=== PATIENT | female | born 1960 | race Two or more races ===

== ENCOUNTER 2016-09-20 03:18 | Inpatient (IN) | payer OTHER ==
[2016-09-20] MEDS ORDERED: IPRATROPIUM/ALBUTEROL 3 ML DEYVIAL ONE (03:24)
--- NOTE | 2016-09-20 03:25 | EDPHY ---
H & P HPI/ROS: HPI CHIEF COMPLAINT: Shortness of breath, wheezing, cough, chills, fever HISTORY OF PRESENT ILLNESS: this patient is a very pleasant 55-year-old female she does have significant past medical history for asthma she has never been intubated for asthma, she presents emergency room with 1 month of worsening cough. She states over 5 days ago she developed a fever, and for the past 2 days she has had worsening asthma or wheezing and shortness of breath. She tells me the last 2 days she has been having to use her nebulizer very frequently. She is feeling more more short of breath. She has no history of coronary artery disease or pulmonary embolism. She does tell me she has a known left bundle-branch block. She presents emergency room as she was using her nebulizer today but was unable to improve her respiratory status she felt more shortness of breath and further wheezing. She has had a cough nonproductive. She does admit to chills and fever. It is noted she is 37.8 degrees here. Past Medical History: Arthritis, asthma, left bundle branch block, chronic back pain Past Surgical History: Multiple orthopedic surgeries including knees, rotator cuff Social History: Denies use of drugs alcohol tobacco products Family History: Noncontributory ROS REVIEW OF SYSTEMS: A comprehensive 10 point review of systems is otherwise negative aside from elements mentioned in the history of present illness. Exam Constitutional appears well, triage nursing summary reviewed, vital signs reviewed, awake/alert. Eyes normal conjunctivae and sclera, EOMI, PERRLA. HENT normal inspection, atraumatic, moist mucus membranes, no epistaxis, neck supple/ no meningismus, no raccoon eyes. Respiratory diminished breath sounds bilaterally, faint wheezing, prolonged expiratory phase, Cardiovascular rate normal, regular rhythm, no murmur, no edema, distal pulses normal. Gastrointestinal soft, non-tender, no rebound, no guarding, normal bowel sounds, no distension, no pulsatile mass. Genitourinary no CVA tenderness. Musculoskeletal no midline vertebral tenderness, full range of motion, no calf swelling, no tenderness of extremities, no meningismus, good pulses, neurovascularly intact. Skin pink, warm, & dry, no rash, skin atraumatic. Neurologic awake, alert and oriented x 3, AAOx3, moves all 4 extremities equally, motor intact, sensory intact, CN II-XII intact, normal cerebellar, normal vision, normal speech. Psychiatric normal mood/affect. Heme/Lymph/Immune no lymphadenopathy. 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 Will check a chest x-ray, blood work, EKG. She received Solu-Medrol. And will monitor closely. Re-evaluation: EKG interpretation by me on record in [email or web address] system. Impression a time of EKG 3:43 a.m., this is sinus rhythm rate of 83, left bundle branch block present. ED x-ray chest one view: Peribronchial thickening. Cardiomegaly. No acute infiltrate. Image interpreted by myself. 0514: re-examination at this time this patient has had multiple breathing treatments, IV Solu-Medrol, IV fluid bolus and IV morphine for dyspnea and control of her cough. She is resting comfortably at this time. Her D-dimer is noted to be negative, EKG is a left bundle branch block without any acute changes. Chest x-ray shows peribronchial thickening, no pneumonia. Due to her having persistent cough and faint wheezing shortness of breath feel that she should be admitted to the hospital for observation for pulmonary care. I spoke with the hospitalist service Dr. Harvey who agrees to admit this patient. Source: Patient - Personal History Tetanus Vaccine Date: 2011 - Medical/Surgical History Hx Asthma: Yes Hx Chronic Respiratory Disease: No Hx Diabetes: No Hx Cardiac Disease: No Hx Renal Disease: No Hx Cirrhosis: No Hx Alcoholism: No Hx HIV/AIDS: No Hx Splenectomy or Spleen Trauma: No Other PMH: carpel tunnel, uterin polyp, fall 2008 - cervical and lumbar ruptured disc, rotator cuff tears, bilateral fx, post concussive syndrome - co deficit especially speech and short term memory, depression, asthma, LBBB, bilat breast reduction, umbilical hernia repair w/ abdominalplasty - Social History Smoking Status: Never smoked Constitutional: Initial Vital Signs Temperature (C) 37.8 C 09/20/16 03:30 Heart Rate 91 09/20/16 03:30 Respiratory Rate 24 H 09/20/16 03:30 Blood Pressure 119/69 09/20/16 03:30 O2 Sat (%) 93 02/05/17 03:30 O2 Delivery Mode Room Air Allergies/Adverse Reactions: erythromycin base [Erythromycin Base] Allergy (Mild, Verified 06/28/15 14:30) Rash estrogens, conjugated [From Premarin] Allergy (Mild, Verified 06/28/15 14:30) Rash hydromorphone HCl [From Dilaudid] Allergy (Verified 06/28/15 14:30) Vomiting latex [Latex] Allergy (Verified 06/28/15 14:30) Home Medications: Medication Instructions Recorded Acetaminophen [Tylenol ES 500 mg 1,000 mg PO TID PRN 06/28/15 (*)] Albuterol [Proventil Inhaler HFA 1 - 2 puffs IH Q4H PRN 06/28/15 (*)] Ibuprofen [Motrin (*)] 400 mg PO QID PRN 06/28/15 diphenhydrAMINE [Benadryl 25 MG 25 mg PO HS PRN 06/28/15 (*)] Albuterol [Proventil Neb] 3 ml IH PRN PRN 07/29/15 Omeprazole [Prilosec] 40 mg PO DAILY 07/29/15 guaiFENesin/DEXTROMETHORPHAN 10 ml PO Q4 PRN 07/29/15 [Robitussin Dm Oral Liquid (*)] LORazepam [Ativan (*)] 0.5 - 1 mg PO Q8 PRN #10 tab 08/01/15 Metoclopramide [Reglan 10 mg tab 10 mg PO BID PRN #10 tab 03/08/16 (RX)] Medical Decision Making - Data Points Laboratory Results: Laboratory Results 09/20/16 04:30 09/20/16 04:30 09/20/16 09/20/16 09/20/16 05:00 04:55 04:30 WBC 6.05 10^3/uL (3.80-9.50) RBC 5.52 H 10^6/uL (4.18-5.33) Hgb 17.6 H g/dL (12.6-16.3) Hct 52.1 H % (38.0-47.0) MCV 94.4 fL (81.5-99.8) MCH 31.9 pg (27.9-34.1) MCHC 33.8 g/dL (32.4-36.7) RDW 13.1 % (11.5-15.2) Plt Count 172 10^3/uL (150-400) MPV 11.0 fL (8.7-11.7) Neut % (Auto) 66.8 % (39.3-74.2) Lymph % (Auto) 20.0 % (15.0-45.0) [place] % (Auto) 8.3 % (4.5-13.0) Eos % (Auto) 4.1 % (0.6-7.6) Baso % (Auto) 0.5 % (0.3-1.7) Nucleat RBC Rel Count 0.0 % (0.0-0.2) Absolute Neuts (auto) 4.04 10^3/uL (1.70-6.50) Absolute Lymphs (auto) 1.21 10^3/uL (1.00-3.00) Absolute Monos (auto) 0.50 10^3/uL (0.30-0.80) Absolute Eos (auto) 0.25 10^3/uL (0.03-0.40) Absolute Basos (auto) 0.03 10^3/uL (0.02-0.10) Absolute Nucleated RBC 0.00 10^3/uL (0-0.01) Immature Gran % 0.3 % (0.0-1.1) Immature Gran # 0.02 10^3/uL (0.00-0.10) PT 12.9 SEC (12.0-15.0) INR 0.98 (0.83-1.16) APTT 29.8 SEC (23.0-38.0) D-Dimer 0.38 ug/mLFEU (0.00-0.50) Sodium 145 H mEq/L (134-144) Potassium 3.4 L mEq/L (3.5-5.2) Chloride 112 H mEq/L (97-110) Carbon Dioxide 22 mEq/l (22-31) Anion Gap 11 mEq/L (8-16) BUN 13 mg/dL (7-23) Creatinine 0.5 L mg/dL (0.6-1.0) Estimated GFR > 60 Glucose 121 H mg/dL (70-100) Calcium 7.5 L mg/dL (8.5-10.4) Magnesium 1.6 mg/dL (1.6-2.3) Total Bilirubin 0.5 mg/dL (0.1-1.4) Conjugated Bilirubin 0.3 mg/dL (0.0-0.5) Unconjugated Bilirubin 0.2 mg/dL (0.0-1.1) AST 55 H IU/L (14-46) ALT 69 H IU/L (9-52) Alkaline Phosphatase 65 IU/L (38-126) Creatine Kinase 76 IU/L (0-156) CK-MB (CK-2) Fraction 0.96 ng/mL (0-3.19) Troponin I < 0.012 ng/mL (0-0.034) NT-Pro-B Natriuret Pep 95 pg/mL (0-125) Total Protein 6.0 L g/dL (6.3-8.2) Albumin 2.9 L g/dL (3.5-5.0) Lipase 105.0 IU/L (23-300) Urine Color Pending Urine Appearance Pending Urine pH Pending Ur Specific [place] Pending Urine Protein Pending Urine Ketones Pending Urine Blood Pending Urine Nitrate Pending Urine Bilirubin Pending Urine Urobilinogen Pending Ur Leukocyte Esterase Pending Ur Culture Indicated? Pending Urine Glucose Pending Influenza Typ A,B (DFA) Pending Medications Given: Discontinued Medications Albuterol/Ipratropium (Duoneb) 3 ml IH EDNOW ONE Stop: 09/20/16 03:30 Last Admin: 09/20/16 03:40 Dose: 3 ml Departure - Departure Disposition: [facility] Inpatient Acute Clinical Impression: Shortness of breath Acute bronchitis Qualifiers: Bronchitis organism: other organism Qualifier Code: (J20.8) Acute bronchitis due to other specified organisms Condition: Fair Referrals: OUT OF STATE,. [Primary Care Provider] - As per Instructions
[2016-09-20] MEDS ORDERED: NS 1,000 ML IV ONE (03:28)
[2016-09-20] MEDS ORDERED: IPRATROPIUM/ALBUTEROL 3 ML DEYVIAL IH ONE (03:29)
[2016-09-20] MEDS ORDERED: methylPREDNISolone SOD SUCC 125 MG/2 ML VIAL IVP ONE (03:29)
--- NOTE | 2016-09-20 03:46 | CPEKG ---
Heart Rate: 83 RR Interval: 723 P-R Interval: 157 QRSD Interval: 150 QT Interval: 428 QTC Interval: 503 P Mouthcard: 0 QRS Mouthcard: 83 T Wave Mouthcard: -59 EKG Severity - ABNORMAL ECG - EKG Impression: SINUS RHYTHM EKG Impression: VENTRICULAR PREMATURE COMPLEX EKG Impression: LBBB Electronically Signed By: Gera Sears 21-Sep-2016 10:52:06
[2016-09-20] MEDS ORDERED: ONDANSETRON 4 MG/2 ML VIAL ONE (04:32)
[2016-09-20 04:42] LABS: % IMMATURE GRANULYOCYTES 0.3 % (0.0-1.1); ABSOLUTE IMMATURE GRANULOCYTES 0.02 10^3/uL (0.00-0.10); ADD DIFF? NO; ADD MORPH? NO; ADD SCAN? NO; ATYPICAL LYMPHOCYTE FLAG 20 (0-99); FRAGMENT RBC FLAG 0 (0-99); HEMATOCRIT 52.1 % (38.0-47.0); HEMOGLOBIN 17.6 g/dL (12.6-16.3); LEFT SHIFT FLG 0 (0-99); LIPEMIA HEMOLYSIS FLAG 90 (0-99); MEAN CELL HEMOGLOBIN 31.9 pg (27.9-34.1); MEAN CELL HEMOGLOBIN CONCENTR. 33.8 g/dL (32.4-36.7); MEAN CELL VOLUME 94.4 fL (81.5-99.8); PLATELET CLUMPS FLAG 10 (0-99); PLATELET COUNT 172 10^3/uL (150-400); RED BLOOD CELL COUNT 5.52 10^6/uL (4.18-5.33); RED CELL DISTRIBUTION WIDTH 13.1 % (11.5-15.2)
[2016-09-20 04:49] LABS: INR 0.98 (0.83-1.16); PROTIME(PATIENT) 12.9 SEC (12.0-15.0)
[2016-09-20 04:50] LABS: APTT 29.8 SEC (23.0-38.0)
[2016-09-20 04:51] LABS: ALANINE AMINOTRANSFERASE 69 IU/L (9-52); ALBUMIN 2.9 g/dL (3.5-5.0); ALKALINE PHOSPHATASE 65 IU/L (38-126); ANION GAP 11 mEq/L (8-16); ASPARTATE AMINOTRANSFERASE 55 IU/L (14-46); BILIRUBIN,TOTAL 0.5 mg/dL (0.1-1.4); BILIRUBIN-CONJUGATED 0.3 mg/dL (0.0-0.5); BILIRUBIN-UNCONJUGATED 0.2 mg/dL (0.0-1.1); CALCIUM 7.5 mg/dL (8.5-10.4); CARBON DIOXIDE 22 mEq/l (22-31); CHLORIDE 112 mEq/L (97-110); CREATININE 0.5 mg/dL (0.6-1.0); GLOMERULAR FILTRATION RATE > 60; GLUCOSE 121 mg/dL (70-100); MAGNESIUM 1.6 mg/dL (1.6-2.3); POTASSIUM 3.4 mEq/L (3.5-5.2); SODIUM 145 mEq/L (134-144)
[2016-09-20 05:03] LABS: CREATINE KINASE-MB FRACTION 0.96 ng/mL (0-3.19); TROPONIN I < 0.012 ng/mL (0-0.034)
[2016-09-20] MEDS ORDERED: ALBUTEROL 3 ML DEYVIAL IH PRN (05:41)
[2016-09-20] MEDS ORDERED: ONDANSETRON 4 MG/2 ML VIAL IVP PRN (05:41)
[2016-09-20] MEDS ORDERED: ONDANSETRON DISINTEGRATING 4 MG TAB PO PRN (05:41)
[2016-09-20] MEDS ORDERED: POTASSIUM CL 20 MEQ TAB PO ONE (05:49)
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
[2016-09-20 08:16] LABS: COLOR YELLOW; LEUKOCYTE ESTERASE,URINE NEGATIVE (NEGATIVE); NITRITE,URINE NEGATIVE (NEGATIVE)
[2016-09-20 08:19] LABS: BACTERIA TRACE /hpf (NONE SEEN); MUCUS TRACE /lpf (NONE-1+)
[2016-09-20 08:20] LABS: WBC,URINE NONE SEEN /hpf (0-3)
[2016-09-20] MEDS: IPRATROPIUM/ALBUTEROL 3 ML DEYVIAL IH SCH ×4 (08:23→20:52)
[2016-09-20] MEDS: predniSONE 20 MG TAB PO SCH (08:59)
[2016-09-20] MEDS: AZITHROMYCIN 250 MG TAB PO SCH (08:59)
[2016-09-20] MEDS: ENOXAPARIN 40 MG/0.4 ML SYR SC SCH ×2 (09:00)
--- NOTE | 2016-09-20 09:25 | DX ---
Portable AP Upright Chest September 20, 2016 at 3:51 a.m. Clinical History: 55-year-old female presenting to the emergency department complaining of chest pain . Comparison Study: Chest, dated October 01, 2015. Findings: Telemetry monitoring lead line is present. The cardiac silhouette is mildly enlarged, and t here is mild diffuse peribronchial thickening. There is no focal alveolar consolidation, pleural effu william, peripheral interstitial edema, or pneumothorax. The osseous structures are age-appropriate. Impression: Borderline cardiomegaly and perihilar bronchitis, without a focal infiltrate or pleural e ffusion.
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
[2016-09-20] MEDS: ACETAMINOPHEN 325 MG TAB PO PRN (12:35)
[2016-09-20] MEDS: PARoxetine HCL 20 MG TAB PO SCH (12:48)
[2016-09-20] MEDS: IBUPROFEN 200 MG TAB PO PRN ×2 (15:38→21:35)
[2016-09-20] MEDS: LORazepam 0.5 MG TAB PO PRN (21:35)
[2016-09-21] MEDS: diphenhydrAMINE 25 MG CAP PO PRN (02:08)
[2016-09-21] MEDS: oxyCODONE IR 5 MG TAB PO PRN ×2 (02:10→21:56)
[2016-09-21] MEDS: IPRATROPIUM/ALBUTEROL 3 ML DEYVIAL IH SCH ×4 (05:28→20:47)
[2016-09-21 06:13] LABS: % IMMATURE GRANULYOCYTES 0.3 % (0.0-1.1); ABSOLUTE IMMATURE GRANULOCYTES 0.03 10^3/uL (0.00-0.10); ADD DIFF? NO; ADD MORPH? NO; ADD SCAN? NO; ATYPICAL LYMPHOCYTE FLAG 70 (0-99); FRAGMENT RBC FLAG 0 (0-99); HEMATOCRIT 48.8 % (38.0-47.0); LEFT SHIFT FLG 70 (0-99); LIPEMIA HEMOLYSIS FLAG 80 (0-99); MEAN CELL HEMOGLOBIN 31.6 pg (27.9-34.1); MEAN CELL HEMOGLOBIN CONCENTR. 32.8 g/dL (32.4-36.7); MEAN CELL VOLUME 96.3 fL (81.5-99.8); MEAN PLATELET VOLUME 11.1 fL (8.7-11.7); PLATELET CLUMPS FLAG 0 (0-99); PLATELET COUNT 162 10^3/uL (150-400); RED BLOOD CELL COUNT 5.07 10^6/uL (4.18-5.33); RED CELL DISTRIBUTION WIDTH 13.5 % (11.5-15.2)
[2016-09-21 06:24] LABS: ANION GAP 9 mEq/L (8-16); CARBON DIOXIDE 25 mEq/l (22-31); CHLORIDE 105 mEq/L (97-110); CREATININE 0.5 mg/dL (0.6-1.0); GLOMERULAR FILTRATION RATE > 60; GLUCOSE 141 mg/dL (70-100); POTASSIUM 4.7 mEq/L (3.5-5.2); SODIUM 139 mEq/L (134-144)
[2016-09-21] MEDS: MULTIVITAMINS 1 EACH TAB PO SCH (08:17)
[2016-09-21] MEDS: PARoxetine HCL 20 MG TAB PO SCH (08:17)
[2016-09-21] MEDS: predniSONE 20 MG TAB PO SCH (08:17)
[2016-09-21] MEDS: AZITHROMYCIN 250 MG TAB PO SCH (08:17)
[2016-09-21] MEDS: LORazepam 0.5 MG TAB PO PRN ×2 (08:20→21:53)
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
[2016-09-21] MEDS: methylPREDNISolone SOD SUCC 125 MG/2 ML VIAL IVP SCH ×2 (13:33→21:52)
[2016-09-21] MEDS: MONTELUKAST SODIUM 10 MG TAB PO SCH (16:57)
[2016-09-22 02:10] LABS: COLOR PALE YELLOW; LEUKOCYTE ESTERASE,URINE NEGATIVE (NEGATIVE); NITRITE,URINE NEGATIVE (NEGATIVE)
[2016-09-22 02:13] LABS: BACTERIA TRACE /hpf (NONE SEEN); WBC,URINE NONE SEEN /hpf (0-3)
[2016-09-22] MEDS: diphenhydrAMINE 25 MG CAP PO PRN ×2 (02:17→22:07)
[2016-09-22] MEDS: IBUPROFEN 200 MG TAB PO PRN (02:17)
[2016-09-22] MEDS: IPRATROPIUM/ALBUTEROL 3 ML DEYVIAL IH SCH ×4 (05:30→21:21)
[2016-09-22] MEDS: methylPREDNISolone SOD SUCC 125 MG/2 ML VIAL IVP SCH ×3 (05:57→21:51)
[2016-09-22] MEDS: MULTIVITAMINS 1 EACH TAB PO SCH (08:53)
[2016-09-22] MEDS: LORazepam 0.5 MG TAB PO PRN (08:53)
[2016-09-22] MEDS: PARoxetine HCL 20 MG TAB PO SCH (08:53)
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
[2016-09-22] MEDS: MONTELUKAST SODIUM 10 MG TAB PO SCH (17:15)
[2016-09-22] MEDS: oxyCODONE IR 5 MG TAB PO PRN (22:07)
[2016-09-23] MEDS: IBUPROFEN 200 MG TAB PO PRN ×2 (01:28→07:35)
[2016-09-23] MEDS: IPRATROPIUM/ALBUTEROL 3 ML DEYVIAL IH SCH ×2 (05:07→10:41)
[2016-09-23 07:30] VITALS: BP 153/66; RESP 18; TEMP 97.8; O2SAT 92
[2016-09-23] MEDS: ACETAMINOPHEN 325 MG TAB PO PRN (07:36)
[2016-09-23] MEDS ORDERED: predniSONE 20 MG TAB PO SCH (09:00)
[2016-09-23] MEDS: PARoxetine HCL 20 MG TAB PO SCH (09:02)
[2016-09-23] MEDS: MULTIVITAMINS 1 EACH TAB PO SCH (09:02)
[2016-09-23] MEDS: LORazepam 0.5 MG TAB PO PRN (09:06)
[2016-09-23 11:58] VITALS: PULSE 72
--- NOTE | 2016-09-23 16:15 | GDS ---
[f rep st] DISCHARGE SUMMARY DISCHARGE DIAGNOSES: 1. Bronchitis with acute asthma exacerbation. 2. Acute hypoxic respiratory failure. 3. Chronic abdominal pain. 4. Depression. HISTORY: This is a 55-year-old female, who presented with increasing shortness of breath and cough. She had been sick for the last year thinking that it might be mold, and has been seeing [facility] for her lung issues chronically. HOSPITAL COURSE: Patient did not have any changes on chest x-ray, nor did she have any sputum produc tion. She was placed on antibiotics and steroids. She did improve quite dramatically with the stero ids and is feeling better. However, she does remain hypoxic and will need oxygen at home. She did g et 4 days of antibiotics and I believe she will need to continue this. She will be discharged to [facility] with her primary care physician. TIME SPENT: Greater than 30 minutes was spent on discharge. /[id number]/MODL
== END 2016-09-23 14:55 | disposition home or self-care (01) | DRG 202 ==
LOC: INTOOBSV 05:13 → F3E 06:13 → OBSVTOIN 09-21 08:58
PROVIDERS: ADMIT Student in an Organized Health Care Education/Training Program; ATTEND Internal Medicine
DX: J45.901 Unspecified asthma with (acute) exacerbation (principal); J96.01 Acute respiratory failure with hypoxia; G89.29 Other chronic pain; E87.1 Hypo-osmolality and hyponatremia; E87.6 Hypokalemia; I44.7 Left bundle-branch block, unspecified
CPT/HCPCS: 96374; 97161-GP; G0378; G8978-GP-CI; G8979-GP-CI; G8980-GP-CI; J1650; J2405

== ENCOUNTER 2016-12-31 13:15 | Emergency (ER) | payer OTHER ==
[2016-12-31 13:33] VITALS: TEMP 98.2
[2016-12-31] MEDS ORDERED: IPRATROPIUM/ALBUTEROL 3 ML DEYVIAL IH ONE ×3 (13:35→15:57)
[2016-12-31] MEDS ORDERED: predniSONE 20 MG TAB PO ONE (14:31)
--- NOTE | 2016-12-31 14:36 | CPEKG ---
Heart Rate: 75 RR Interval: 800 P-R Interval: 156 QRSD Interval: 154 QT Interval: 440 QTC Interval: 492 P [place]: 38 QRS [place]ola: -17 T Wave [place]: 131 EKG Severity - ABNORMAL ECG - EKG Impression: SINUS RHYTHM EKG Impression: LEFT BUNDLE BRANCH BLOCK Electronically Signed By: Janeth Rondon 01-Jan-2017 11:37:31
--- NOTE | 2016-12-31 14:39 | EDPHY ---
H & P Stated Complaint: asthma exacerbation Time Seen by Provider: 12/31/16 14:25 HPI/ROS: HPI: 48-year-old female presents to emergency department chief concern wheezing. Symptoms onset 7 days ago. 3 days ago developed productive cough with white phlegm. Reports left-sided lungs feeling "tight". Reports left sided chest pain transiently yesterday that has resolved. Has used her nebulizer every 2 hours as prescribed, and her rescue inhaler at home with some improvement. Denies fever, dizziness, abdominal pain, nausea, vomiting. History pneumonia x5 in the past 2 years. Has been hospitalized for asthma. No known history of left bundle branch block. ROS:10 point review of systems is negative other than as stated in HPI Source: Patient Exam Limitations: No limitations - Personal History Current Tetanus/Diphtheria Vaccine: Yes Tetanus Vaccine Date: 2011 - Medical/Surgical History Hx Asthma: Yes Hx Chronic Respiratory Disease: No Hx Diabetes: No Hx Cardiac Disease: No Hx Renal Disease: No Hx Cirrhosis: No Hx Alcoholism: No Hx HIV/AIDS: No Hx Splenectomy or Spleen Trauma: No Other PMH: carpel tunnel, uterin polyp, fall 2008 - cervical and lumbar ruptured disc, rotator cuff tears, bilateral fx, post concussive syndrome - co deficit especially speech and short term memory, depression, asthma, LBBB, bilat breast reduction, umbilical hernia repair w/ abdominalplasty - Family History Significant Family History: No pertinent family hx - Social History Smoking Status: Never smoked Alcohol Use: None Drug Use: None Additional Social History: - Physical Exam Exam: Vital signs reviewed by me General: Awake, alert, calm, cooperative. No acute distress. Head: Normalocephalic. Atraumatic. EENT: PERRLA. EOMI. No pallor or injection. Anicteric. No nystagmus. No injection. TMs intact bilaterally with normal landmarks. No rhinnorhea, nasal passages clear. Oropharynx without redness, exudates, or lesions. Tonsils 2+ bilaterally, no exudates. Neck: Supple, nontender. No lymphadenopathy. Full range of motion. No meningismus. Respiratory: Breathing unlabored. Breath sounds equal and clear bilaterally. Expiratory Wheezes noted anteriorly.. CV: Chest nontender, atraumatic. Heart rate regular. No murmur, distal pulses 2+ bilaterally. Brisk cap refill all extremities. GI: Abdomen soft, obese, nontender. Bowel sounds normoactive and positive x4 quadrants. Neuro: Alert. Oriented x 3. Speech clear. Nonfocal cranial nerves throughout. Sensation intact all extremities. Skin: Skin warm, dry, intact. Extremities: Full range of motion in all 4 extremities. Constitutional: Initial Vital Signs Temperature (C) 36.8 C 12/31/16 13:32 Heart Rate 87 12/31/16 13:32 Respiratory Rate 30 H 12/31/16 13:32 Blood Pressure 135/75 H 12/31/16 13:32 O2 Sat (%) 93 12/31/16 13:32 O2 Delivery Mode Room Air Allergies/Adverse Reactions: erythromycin base [Erythromycin Base] Allergy (Mild, Verified 06/28/15 14:30) Rash estrogens, conjugated [From Premarin] Allergy (Mild, Verified 06/28/15 14:30) Rash enoxaparin sodium [From Lovenox] Allergy (Verified 09/20/16 09:02) Rash hydromorphone HCl [From Dilaudid] Allergy (Verified 06/28/15 14:30) Vomiting latex [Latex] Allergy (Verified 06/28/15 14:30) Home Medications: Medication Instructions Recorded Acetaminophen [Tylenol ES 500 mg 1,000 mg PO TID PRN 06/28/15 (*)] Albuterol [Proventil Inhaler HFA 1 - 2 puffs IH Q4H PRN 06/28/15 (*)] Ibuprofen [Motrin (*)] 400 mg PO QID PRN 06/28/15 diphenhydrAMINE [Benadryl 25 MG 25 mg PO HS PRN 06/28/15 (*)] Albuterol [Proventil Neb] 3 ml IH Q6 PRN 07/29/15 Dm/Acetaminophen/Doxylamine [Vicks 10 ml PO HS PRN 09/20/16 Nyquil Cold & Flu Liquid] Herbals/Supplements -Info Only 1 ea PO DAILY 09/20/16 LORazepam [Ativan (*)] 0.5 mg PO DAILY PRN 09/20/16 Multivitamins [Multivitamin (*)] 1 tab PO DAILY 09/20/16 PARoxetine HCL [Paxil 20mg (*)] 20 mg PO DAILY 09/20/16 Albuterol [Proventil Neb] 3 ml IH Q2HRS PRN #100 deyvial 09/23/16 Fluticasone/Salmeter 250/50Mcg 1 puffs IH BID #1 disk 09/23/16 [Advair 250/50 (*)] predniSONE 60 mg PO DAILY #21 tablet 09/23/16 predniSONE 20 mg PO DAILY #12 tab 12/31/16 Medical Decision Making - Diagnostics Imaging Results: Imaging Impressions Chest X-Ray 12/31/16 14:31 Impression: Consistent with airways disease. Imaging: I viewed and interpreted images myself ED Course/Re-evaluation: 1440:48-year-old female presents to ED with chief concern wheezing that onset 7 days ago. Has a history of asthma. Has used her albuterol nebulizer with some improvement. Given 2 duo nebs thus far with some improvement. Chest x-ray pending. EKG shows a sinus rhythm, rate 75, left bundle branch block that is not new. No evidence of acute ischemia. Given 60 mg oral prednisone. 1700: After 3rd DuoNeb, lungs significantly improved. 94% on oxygen with ambulation. Talking in full sentences. No shortness of breath. She has been counseled regarding need for follow-up tomorrow and has been provided the on- call outpatient medicines phone number. She understands to return for worsening symptoms. Differential Diagnosis: Differential diagnosis includes but is not limited to asthma exacerbation, pneumonia, URI - Data Points Medications Given: Discontinued Medications Albuterol/Ipratropium (Duoneb) 3 ml IH EDNOW ONE Stop: 12/31/16 13:36 Last Admin: 12/31/16 13:43 Dose: 3 ml Albuterol/Ipratropium (Duoneb) 3 ml IH EDNOW ONE Stop: 12/31/16 14:32 Last Admin: 12/31/16 14:45 Dose: 3 ml Albuterol/Ipratropium (Duoneb) 3 ml IH EDNOW ONE Stop: 12/31/16 15:58 Last Admin: 12/31/16 16:02 Dose: 3 ml Prednisone (Prednisone) 60 mg PO EDNOW ONE Stop: 12/31/16 14:32 Last Admin: 12/31/16 14:46 Dose: 60 mg Departure - Departure Disposition: Home, Routine, Self-Care Clinical Impression: Asthma exacerbation Condition: Good Instructions: Asthma (ED) Additional Instructions: Plan: Follow up with primary care Dr Alvares's office tomorrow for recheck without fail--When you call to schedule appointment, please let the office know you are an "ER follow up" appointment" User nebulizer and rescue inhaler at home as prescribed by primary care Prednisone taper as prescribed Return to ER for worsening symptoms Referrals: DARLYN SPAIN [Other] - As per Instructions Barron Alvares MD [Medical Doctor] - As per Instructions Prescriptions: predniSONE 20 mg PO DAILY #12 tab
[2016-12-31 15:05] VITALS: RESP 18
[2016-12-31 16:28] VITALS: BP 142/70; PULSE 98; O2SAT 94
== END 2016-12-31 16:45 | disposition home or self-care (01) ==
DX: J45.901 Unspecified asthma with (acute) exacerbation (principal)

== ENCOUNTER 2017-01-02 04:07 | Inpatient (IN) | payer OTHER ==
--- NOTE | 2017-01-02 04:11 | EDPHY ---
H & P HPI/ROS: HPI CHIEF COMPLAINT: Shortness of breath, asthma, anxiety HISTORY OF PRESENT ILLNESS: This patient very pleasant 56-year-old female, she does have significant past medical history for asthma, used to be on 4 L oxygen however no longer is, has a nebulizer at home has been using breathing treatments every 2 hours for shortness of breath. She states for the past few days she has had progressively worsening shortness of breath. She was recently seen here in the emergency room yesterday and felt better after multiple breathing treatments and was discharged home on prednisone. She presents back to the emergency room at 4 o'clock in the morning by EMS for progressively worsening shortness of breath and wheezing. States she has been using her home nebulizer every 2 hours been has ongoing shortness of breath and wheezing. Also states her chest feels tight. Also tells me she feels very anxious. Endorses a nonproductive dry cough. Past Medical History: Asthma, left bundle-branch block, arthritis, chronic back pain Past Surgical History: Multiple orthopedic surgeries. Social History: Denies daily use of drugs alcohol tobacco products Family History: Noncontributory ROS REVIEW OF SYSTEMS: A comprehensive 10 point review of systems is otherwise negative aside from elements mentioned in the history of present illness. Exam Constitutional anxious, tearful, triage nursing summary reviewed, vital signs reviewed, awake/alert. Eyes normal conjunctivae and sclera, EOMI, PERRLA. HENT normal inspection, atraumatic, moist mucus membranes, no epistaxis, neck supple/ no meningismus, no raccoon eyes. Respiratory decreased breath sounds bilaterally, faint wheezing, Cardiovascular Tachycardia, regular rhythm, no murmur, no edema, distal pulses normal. Gastrointestinal soft, non-tender, no rebound, no guarding, normal bowel sounds, no distension, no pulsatile mass. Genitourinary no CVA tenderness. Musculoskeletal no midline vertebral tenderness, full range of motion, no calf swelling, no tenderness of extremities, no meningismus, good pulses, neurovascularly intact. Skin pink, warm, & dry, no rash, skin atraumatic. Neurologic awake, alert and oriented x 3, AAOx3, moves all 4 extremities equally, motor intact, sensory intact, CN II-XII intact, normal cerebellar, normal vision, normal speech. Psychiatric normal mood/affect. Heme/Lymph/Immune no lymphadenopathy. Differential Diagnosis: Includes but is not limited to in a particular order, acute asthma, reactive airway disease, pneumonia, PE, CHF, ACS, pneumothorax Medical Decision Making: Plan for this patient full monitoring analyst, EKG, IV establishment, IV Solu-Medrol, IV fluid bolus, DuoNeb breathing treatment. IV Ativan for anxiety. Chest x-ray. Re-evaluation. Re-evaluation: EKG interpretation by me on record in [facility] system. Impression time of EKG 4:20 a.m., this is sinus tachycardia rate of 111, left bundle-branch block present. When I compare this to previous EKGs specifically 12/31/2016 unchanged morphology. Left bundle-branch block present. ED x-ray chest one view: No focal pneumonia appreciated. Airway disease. Image interpreted myself. 0508: Re-evaluation at this time patient is moving much better air movement DuoNeb breathing treatment. Ativan for acute anxiety. She tells me she does feel much better. Noted heart rate 107 at this time. 0528AM: Re-examination at this time patient still coughing still feels short of breath. Faint wheezing. Better after DuoNeb and Ativan. She has received IV Solu-Medrol here, IV fluids. EKG is nonischemic but left bundle-branch block at baseline. Chest x-ray shows no acute focal pneumonia. Given that the patient was here in the emergency room yesterday and now back with worsening shortness of breath wheezing decreased air movement anxiety and tachycardia I will admitted to the hospital for acute asthma. Pulmonary toilet. Dr. Zavala has agreed to admit. Source: Patient, EMS - Personal History Tetanus Vaccine Date: 2011 - Medical/Surgical History Hx Asthma: Yes Hx Chronic Respiratory Disease: No Hx Diabetes: No Hx Cardiac Disease: No Hx Renal Disease: No Hx Cirrhosis: No Hx Alcoholism: No Hx HIV/AIDS: No Hx Splenectomy or Spleen Trauma: No Other PMH: carpel tunnel, uterin polyp, fall 2008 - cervical and lumbar ruptured disc, rotator cuff tears, bilateral fx, post concussive syndrome - co deficit especially speech and short term memory, depression, asthma, LBBB, bilat breast reduction, umbilical hernia repair w/ abdominalplasty - Social History Smoking Status: Never smoked Constitutional: Initial Vital Signs Temperature (C) 37 C 01/02/17 04:07 Heart Rate 120 H 01/02/17 04:07 Respiratory Rate 16 01/02/17 04:07 Blood Pressure 103/74 01/02/17 04:07 O2 Sat (%) 94 01/02/17 04:07 O2 Delivery Mode Nasal Cannula O2 (L/minute) 2 Allergies/Adverse Reactions: erythromycin base [Erythromycin Base] Allergy (Mild, Verified 01/02/17 05:14) Rash estrogens, conjugated [From Premarin] Allergy (Mild, Verified 01/02/17 05:14) Rash enoxaparin sodium [From Lovenox] Allergy (Verified 01/02/17 05:14) Rash hydromorphone HCl [From Dilaudid] Allergy (Verified 01/02/17 05:14) Vomiting latex [Latex] Allergy (Verified 01/02/17 05:14) Home Medications: Medication Instructions Recorded Acetaminophen [Tylenol ES 500 mg 1,000 mg PO TID PRN 06/28/15 (*)] Albuterol [Proventil Inhaler HFA 1 - 2 puffs IH Q4H PRN 06/28/15 (*)] Ibuprofen [Motrin (*)] 400 mg PO QID PRN 06/28/15 diphenhydrAMINE [Benadryl 25 MG 25 mg PO HS PRN 06/28/15 (*)] Albuterol [Proventil Neb] 3 ml IH Q6 PRN 07/29/15 Dm/Acetaminophen/Doxylamine [Vicks 10 ml PO HS PRN 09/20/16 Nyquil Cold & Flu Liquid] Herbals/Supplements -Info Only 1 ea PO DAILY 09/20/16 LORazepam [Ativan (*)] 0.5 mg PO DAILY PRN 09/20/16 Multivitamins [Multivitamin (*)] 1 tab PO DAILY 09/20/16 PARoxetine HCL [Paxil 20mg (*)] 20 mg PO DAILY 09/20/16 Albuterol [Proventil Neb] 3 ml IH Q2HRS PRN #100 deyvial 09/23/16 Fluticasone/Salmeter 250/50Mcg 1 puffs IH BID #1 disk 09/23/16 [Advair 250/50 (*)] predniSONE 60 mg PO DAILY #21 tablet 09/23/16 predniSONE 20 mg PO DAILY #12 tab 12/31/16 Medical Decision Making - Data Points Laboratory Results: Laboratory Results 01/02/17 04:40 01/02/17 04:40 01/02/17 01/02/17 01/02/17 04:40 04:40 04:40 WBC 8.26 10^3/uL 10^3/uL (3.80-9.50) RBC 5.46 10^6/uL H 10^6/uL (4.18-5.33) Hgb 17.4 g/dL H g/dL (12.6-16.3) Hct 51.4 % H % (38.0-47.0) MCV 94.1 fL fL (81.5-99.8) MCH 31.9 pg pg (27.9-34.1) MCHC 33.9 g/dL g/dL (32.4-36.7) RDW 13.2 % % (11.5-15.2) Plt Count 177 10^3/uL 10^3/uL (150-400) MPV 11.0 fL fL (8.7-11.7) Neut % (Auto) 68.0 % % (39.3-74.2) Lymph % (Auto) 22.8 % % (15.0-45.0) [place] % (Auto) 8.2 % % (4.5-13.0) Eos % (Auto) 0.1 % L % (0.6-7.6) Baso % (Auto) 0.4 % % (0.3-1.7) Nucleat RBC Rel Count 0.0 % % (0.0-0.2) Absolute Neuts (auto) 5.62 10^3/uL 10^3/uL (1.70-6.50) Absolute Lymphs (auto) 1.88 10^3/uL 10^3/uL (1.00-3.00) Absolute Monos (auto) 0.68 10^3/uL 10^3/uL (0.30-0.80) Absolute Eos (auto) 0.01 10^3/uL L 10^3/uL (0.03-0.40) Absolute Basos (auto) 0.03 10^3/uL 10^3/uL (0.02-0.10) Absolute Nucleated RBC 0.00 10^3/uL 10^3/uL (0-0.01) Immature Gran % 0.5 % % (0.0-1.1) Immature Gran # 0.04 10^3/uL 10^3/uL (0.00-0.10) PT 12.5 SEC SEC (12.0-15.0) INR 0.94 (0.83-1.16) APTT 25.7 SEC SEC (23.0-38.0) D-Dimer Pending Sodium 139 mEq/L mEq/L (134-144) Potassium 3.7 mEq/L mEq/L (3.5-5.2) Chloride 103 mEq/L mEq/L (97-110) Carbon Dioxide 23 mEq/l mEq/l (22-31) Anion Gap 13 mEq/L mEq/L (8-16) BUN 18 mg/dL mg/dL (7-23) Creatinine 0.6 mg/dL mg/dL (0.6-1.0) Estimated GFR > 60 Glucose 118 mg/dL H mg/dL (70-100) Calcium 9.4 mg/dL mg/dL (8.5-10.4) Total Bilirubin 0.6 mg/dL mg/dL (0.1-1.4) Conjugated Bilirubin 0.4 mg/dL mg/dL (0.0-0.5) Unconjugated Bilirubin 0.2 mg/dL mg/dL (0.0-1.1) AST 62 IU/L H IU/L (14-46) ALT 82 IU/L H IU/L (9-52) Alkaline Phosphatase 78 IU/L IU/L (38-126) Troponin I 0.016 ng/mL ng/mL (0-0.034) NT-Pro-B Natriuret Pep 225 pg/mL H pg/mL (0-125) Total Protein 7.5 g/dL g/dL (6.3-8.2) Albumin 4.2 g/dL g/dL (3.5-5.0) Medications Given: Discontinued Medications Albuterol/Ipratropium (Duoneb) 3 ml IH EDNOW ONE Stop: 01/02/17 04:14 Last Admin: 01/02/17 04:13 Dose: 3 ml Albuterol/Ipratropium (Duoneb) 3 ml IH EDNOW ONE Stop: 01/02/17 04:14 Last Admin: 01/02/17 04:13 Dose: 3 ml Sodium Chloride (Ns) 1,000 mls @ 0 mls/hr IV ONCE ONE PRN Reason: Wide Open Stop: 01/02/17 04:14 Last Admin: 01/02/17 04:20 Dose: 1,000 mls Lorazepam (Ativan Injection) 1 mg IVP EDNOW ONE Stop: 01/02/17 04:18 Last Admin: 01/02/17 04:30 Dose: 1 mg Methylprednisolone Sodium Succinate (Solu-Medrol) 125 mg IVP EDNOW ONE Stop: 01/02/17 04:14 Last Admin: 01/02/17 04:20 Dose: 125 mg Ondansetron HCl (Zofran) 4 mg IVP EDNOW ONE Stop: 01/02/17 05:04 Last Admin: 01/02/17 05:00 Dose: 4 mg Departure - Departure Disposition: [facility] Inpatient Acute Clinical Impression: Shortness of breath Asthma Qualifiers: Asthma severity: unspecified severity Asthma complication type: with acute exacerbation Qualified Code(s): J45.901 - Unspecified asthma with (acute) exacerbation Condition: Fair Referrals: Patient,NotPresent [Unknown] - As per Instructions
[2017-01-02] MEDS ORDERED: methylPREDNISolone SOD SUCC 125 MG/2 ML VIAL IVP ONE (04:13)
[2017-01-02] MEDS ORDERED: NS 1,000 ML IV ONE (04:13)
[2017-01-02] MEDS ORDERED: IPRATROPIUM/ALBUTEROL 3 ML DEYVIAL IH ONE ×3 (04:13→05:16)
[2017-01-02] MEDS ORDERED: IPRATROPIUM/ALBUTEROL 3 ML DEYVIAL ONE (04:14)
[2017-01-02] MEDS ORDERED: LORazepam 2 MG/ML INJ IVP ONE (04:17)
[2017-01-02] MEDS ORDERED: ONDANSETRON 4 MG/2 ML VIAL ONE (04:25)
[2017-01-02] MEDS ORDERED: ONDANSETRON 4 MG/2 ML VIAL IVP ONE (05:03)
[2017-01-02 05:04] LABS: % IMMATURE GRANULYOCYTES 0.5 % (0.0-1.1); ABSOLUTE IMMATURE GRANULOCYTES 0.04 10^3/uL (0.00-0.10); ADD DIFF? NO; ADD MORPH? NO; ADD SCAN? NO; ATYPICAL LYMPHOCYTE FLAG 60 (0-99); FRAGMENT RBC FLAG 0 (0-99); HEMATOCRIT 51.4 % (38.0-47.0); HEMOGLOBIN 17.4 g/dL (12.6-16.3); LEFT SHIFT FLG 30 (0-99); LIPEMIA HEMOLYSIS FLAG 90 (0-99); MEAN CELL HEMOGLOBIN 31.9 pg (27.9-34.1); MEAN CELL HEMOGLOBIN CONCENTR. 33.9 g/dL (32.4-36.7); MEAN CELL VOLUME 94.1 fL (81.5-99.8); PLATELET CLUMPS FLAG 0 (0-99); PLATELET COUNT 177 10^3/uL (150-400); RED BLOOD CELL COUNT 5.46 10^6/uL (4.18-5.33); RED CELL DISTRIBUTION WIDTH 13.2 % (11.5-15.2)
[2017-01-02 05:07] LABS: INR 0.94 (0.83-1.16); PROTIME(PATIENT) 12.5 SEC (12.0-15.0)
[2017-01-02 05:12] LABS: ALANINE AMINOTRANSFERASE 82 IU/L (9-52); ALBUMIN 4.2 g/dL (3.5-5.0); ALKALINE PHOSPHATASE 78 IU/L (38-126); ANION GAP 13 mEq/L (8-16); ASPARTATE AMINOTRANSFERASE 62 IU/L (14-46); BILIRUBIN,TOTAL 0.6 mg/dL (0.1-1.4); BILIRUBIN-CONJUGATED 0.4 mg/dL (0.0-0.5); BILIRUBIN-UNCONJUGATED 0.2 mg/dL (0.0-1.1); CALCIUM 9.4 mg/dL (8.5-10.4); CARBON DIOXIDE 23 mEq/l (22-31); CHLORIDE 103 mEq/L (97-110); CREATININE 0.6 mg/dL (0.6-1.0); GLOMERULAR FILTRATION RATE > 60; GLUCOSE 118 mg/dL (70-100); POTASSIUM 3.7 mEq/L (3.5-5.2); SODIUM 139 mEq/L (134-144); TOTAL PROTEIN 7.5 g/dL (6.3-8.2)
--- NOTE | 2017-01-02 05:12 | CPEKG ---
Heart Rate: 111 RR Interval: 541 P-R Interval: 152 QRSD Interval: 148 QT Interval: 364 QTC Interval: 495 P [place]: 61 QRS [place]: -25 T Wave [place]: 120 EKG Severity - ABNORMAL ECG - EKG Impression: SINUS TACHYCARDIA EKG Impression: LEFT BUNDLE BRANCH BLOCK EKG Impression: INFERIOR ST ELEVATION, POSSIBLY DUE TO LBBB Electronically Signed By: Fly Chopra 02-Jan-2017 06:53:33
[2017-01-02 05:13] LABS: APTT 25.7 SEC (23.0-38.0)
[2017-01-02 05:23] LABS: TROPONIN I 0.016 ng/mL (0-0.034)
[2017-01-02] MEDS ORDERED: ALBUTEROL 3 ML DEYVIAL ONE (05:26)
[2017-01-02] MEDS ORDERED: ALBUTEROL 3 ML DEYVIAL IH ONE (05:29)
[2017-01-02] MEDS ORDERED: ACETAMINOPHEN 325 MG TAB PO PRN (05:46)
[2017-01-02] MEDS ORDERED: ONDANSETRON DISINTEGRATING 4 MG TAB PO PRN (05:46)
[2017-01-02] MEDS ORDERED: LORazepam 0.5 MG TAB PO PRN (05:46)
[2017-01-02] MEDS ORDERED: ALBUTEROL 3 ML DEYVIAL IH PRN ×2 (05:46→09:27)
[2017-01-02] MEDS ORDERED: ONDANSETRON 4 MG/2 ML VIAL IVP PRN (05:46)
[2017-01-02] MEDS: methylPREDNISolone SOD SUCC 125 MG/2 ML VIAL IVP SCH ×2 (07:29→12:49)
--- NOTE | 2017-01-02 07:39 | PDGENHP ---
History and Physical - Chief Complaint wheezing - History of Present Illness Patient is a 56 year old female with asthma, obesity, chronic back pain who presents to the ED with complaint of wheezing and chest tightness. Patient states her symptoms started about 5-6 days ago, with wheezing and dry cough. These symptoms progressed, her wheezing persisted despite using her home neb every 2 hours and her cough became more productive of thick sputum. On 12/31 she also felt she was developing subjective fevers and chills, so she decided to come to the ED for further evaluation. She was evaluated in the ED on 12/31, was found to have moderate wheezing on exam that improved with PO steroids and neb treatments. She was then discharged home from the ED with a prescription for prednisone and alb neb. She returns to the ED today complaining of persistent wheezing, now associated with significant chest tightness and shortness of breath. Her cough has also continued and prior to arrival the had three episodes of vomiting associated with her cough. Given her continued symptoms, she decided to return to the ED for further evaluation. On arrival to the ED, patient was afebrile, but tachycardic and in moderate respiratory distress, hypoxic on room air. She was given several rounds of duonebs, IV solumedrol and supplemental O2 via nasal cannula, with significant improvement in her respiratory status. Labs revealed normal CBC, BMP and negative troponin. EKG shows her baseline LBBB and CXR did not reveal obvious infiltrate. She was then admitted to the hospitalist service for further management. History Information - Allergies/Home Medication List Allergies/Adverse Reactions: erythromycin base [Erythromycin Base] Allergy (Mild, Verified 01/02/17 05:14) Rash estrogens, conjugated [From Premarin] Allergy (Mild, Verified 01/02/17 05:14) Rash enoxaparin sodium [From Lovenox] Allergy (Verified 01/02/17 05:14) Rash hydromorphone HCl [From Dilaudid] Allergy (Verified 01/02/17 05:14) Vomiting latex [Latex] Allergy (Verified 01/02/17 05:14) Home Medications: Acetaminophen [Tylenol ES 500 mg (*)] 1,000 mg PO TID PRN 06/28/15 [Last Taken 09/19/16 23:30] Albuterol [Proventil Inhaler HFA (*)] 1 - 2 puffs IH Q4H PRN 06/28/15 [Last Taken 09/19/16 23:30] Ibuprofen [Motrin (*)] 400 mg PO QID PRN 06/28/15 [Last Taken 09/19/16 21:00] diphenhydrAMINE [Benadryl 25 MG (*)] 25 mg PO HS PRN 06/28/15 [Last Taken ] Albuterol [Proventil Neb] 3 ml IH Q6 PRN 07/29/15 [Last Taken 09/19/16 14:00] Dm/Acetaminophen/Doxylamine [Vicks Nyquil Cold & Flu Liquid] 10 ml PO HS PRN 12/30 [Last Taken 09/19/16 20:00] Herbals/Supplements -Info Only 1 ea PO DAILY 09/20/16 [Last Taken Unknown] LORazepam [Ativan (*)] 0.5 mg PO DAILY PRN 09/20/16 [Last Taken 09/19/16 08:00] Multivitamins [Multivitamin (*)] 1 tab PO DAILY 09/20/16 [Last Taken 09/19/16 08 :00] PARoxetine HCL [Paxil 20mg (*)] 20 mg PO DAILY 09/20/16 [Last Taken 09/19/16 08: 00] I have personally reviewed and updated: family history, medical history, social history, surgical history - Past Medical History Additional medical history: Asthma, mild intermittent; never been intubated. old LBBB. chronc back pain. obesity. h/o nephrolithiasis - Surgical History Additional surgical history: multiple orthopedic surgeries. b/l carpal tunnel repair. ventral hernia repair. b/l breast reduction - Family History Positive for: non-pertinent - Social History Smoking Status: Never smoked Alcohol Use: None Drug Use: None Additional social history: Patient lives with her , independent in ADLs. Review of Systems ROS: 10pt was reviewed & negative except for what was stated in HPI & below Physical Exam Temp Pulse Resp BP Pulse Ox 37.1 C 102 H 20 136/78 H 91 L 01/02/17 06:27 01/02/17 06:27 01/02/17 06:27 01/02/17 06:27 01/02/17 06:27 O2 (L/minute) 4 Constitutional: no apparent distress, appears nourished, not in pain, obese Eyes: PERRL, anicteric sclera, EOMI Ears, Nose, Mouth, Throat: moist mucous membranes, hearing normal, ears appear normal, no oral mucosal ulcers Cardiovascular: regular rate and rhythym, no murmur, rub, or gallop, No JVD, No edema Peripheral Pulses: 2+: dorsalis-pedis (R), dorsalis-pedis (L) Respiratory: no respiratory distress, no rales or rhonchi, expiratory wheeze ( faint expiratory wheezing diffusely) Gastrointestinal: normoactive bowel sounds, soft, non-tender abdomen, no palpable masses Genitourinary: no bladder fullness, no bladder tenderness Skin: warm, normal color, no rashes or abrasions, no fluctuance, no induration, No mottled Musculoskeletal: full muscle strength, no muscle tenderness, normal joint ROM, no joint effusions Neurologic: AAOx3, sensation intact bilaterally, CN II-XII Intact, No weakness, No numbness Psychiatric: interacting appropriately, not anxious, not encephalopathic, thought process linear Lab Data & Imaging Review 01/02/17 04:40 01/02/17 04:40 WBC 8.26 10^3/uL (3.80-9.50) 01/02/17 04:40 RBC 5.46 10^6/uL (4.18-5.33) H 01/02/17 04:40 Hgb 17.4 g/dL (12.6-16.3) H 01/02/17 04:40 Hct 51.4 % (38.0-47.0) H 01/02/17 04:40 MCV 94.1 fL (81.5-99.8) 01/02/17 04:40 MCH 31.9 pg (27.9-34.1) 01/02/17 04:40 MCHC 33.9 g/dL (32.4-36.7) 01/02/17 04:40 RDW 13.2 % (11.5-15.2) 01/02/17 04:40 Plt Count 177 10^3/uL (150-400) 01/02/17 04:40 MPV 11.0 fL (8.7-11.7) 01/02/17 04:40 Neut % (Auto) 68.0 % (39.3-74.2) 01/02/17 04:40 Lymph % (Auto) 22.8 % (15.0-45.0) 01/02/17 04:40 [place] % (Auto) 8.2 % (4.5-13.0) 01/02/17 04:40 Eos % (Auto) 0.1 % (0.6-7.6) L 01/02/17 04:40 Baso % (Auto) 0.4 % (0.3-1.7) 01/02/17 04:40 Nucleat RBC Rel Count 0.0 % (0.0-0.2) 01/02/17 04:40 Absolute Neuts (auto) 5.62 10^3/uL (1.70-6.50) 01/02/17 04:40 Absolute Lymphs (auto) 1.88 10^3/uL (1.00-3.00) 01/02/17 04:40 Absolute Monos (auto) 0.68 10^3/uL (0.30-0.80) 01/02/17 04:40 Absolute Eos (auto) 0.01 10^3/uL (0.03-0.40) L 01/02/17 04:40 Absolute Basos (auto) 0.03 10^3/uL (0.02-0.10) 01/02/17 04:40 Absolute Nucleated RBC 0.00 10^3/uL (0-0.01) 01/02/17 04:40 Immature Gran % 0.5 % (0.0-1.1) 01/02/17 04:40 Immature Gran # 0.04 10^3/uL (0.00-0.10) 01/02/17 04:40 PT 12.5 SEC (12.0-15.0) 01/02/17 04:40 INR 0.94 (0.83-1.16) 01/02/17 04:40 APTT 25.7 SEC (23.0-38.0) 01/02/17 04:40 D-Dimer 0.41 ug/mLFEU (0.00-0.50) 01/02/17 04:40 Sodium 139 mEq/L (134-144) 01/02/17 04:40 Potassium 3.7 mEq/L (3.5-5.2) 01/02/17 04:40 Chloride 103 mEq/L (97-110) 01/02/17 04:40 Carbon Dioxide 23 mEq/l (22-31) 01/02/17 04:40 Anion Gap 13 mEq/L (8-16) 01/02/17 04:40 BUN 18 mg/dL (7-23) 01/02/17 04:40 Creatinine 0.6 mg/dL (0.6-1.0) 01/02/17 04:40 Estimated GFR > 60 01/02/17 04:40 Glucose 118 mg/dL (70-100) H 01/02/17 04:40 Calcium 9.4 mg/dL (8.5-10.4) 01/02/17 04:40 Total Bilirubin 0.6 mg/dL (0.1-1.4) 01/02/17 04:40 Conjugated Bilirubin 0.4 mg/dL (0.0-0.5) 01/02/17 04:40 Unconjugated Bilirubin 0.2 mg/dL (0.0-1.1) 01/02/17 04:40 AST 62 IU/L (14-46) H 01/02/17 04:40 ALT 82 IU/L (9-52) H 01/02/17 04:40 Alkaline Phosphatase 78 IU/L (38-126) 01/02/17 04:40 Troponin I 0.016 ng/mL (0-0.034) 01/02/17 04:40 NT-Pro-B Natriuret Pep 225 pg/mL (0-125) H 01/02/17 04:40 Total Protein 7.5 g/dL (6.3-8.2) 01/02/17 04:40 Albumin 4.2 g/dL (3.5-5.0) 01/02/17 04:40 Resp Viral Panel (PCR) Cancelled 01/02/17 06:10 Visualized and Interpreted Chest x-ray results: Yes Chest X-Ray results: no infiltrate Visualized and Interpreted EKG results: Yes EKG Interpretation: Positive for: left bundle branch block Assessment & Plan Assessment: Patient is a 56 year old female with asthma, obesity who presents to the ED with complaint of wheezing and shortness of breath. On arrival, presentation appears consistent with an acute asthma exacerbation, possibly triggered by acute bronchitis vs viral URI. Plan: # acute hypoxic respiratory failure Due to acute asthma exacerbation with wheezing, chest tightness. Patient also has productive cough, persistent with 6-7 days of symptoms. CXR does not reveal obvious infiltrate, although official radiology read is pending. Will continue IV solumedrol, standing and prn nebs, and initiate levaquin for likely acute bronchitis (has macrolide allergy). # chest tightness Likely related to acute asthma/wheezing. Patient has underlying LBBB, so difficult to assess for ischemia. Initial troponin and d-dimer are negative. Will continue to trend troponins, check TTE and monitor symptoms. # chronic back pain Due to cervical and lumbar radiculopathy, will need to confirm and continue home med regimen. # dispo: admit to observation status # gen: Regular diet Full code
[2017-01-02] MEDS: IPRATROPIUM/ALBUTEROL 3 ML DEYVIAL IH SCH ×4 (08:28→21:46)
--- NOTE | 2017-01-02 09:02 | HOSPPROG ---
Hospitalist Progress Note Assessment/Plan: Patient is a 56 year old female with asthma, obesity who presents to the ED with complaint of wheezing and shortness of breath. On arrival, presentation appears consistent with an acute asthma exacerbation, possibly triggered by acute bronchitis vs viral URI. # acute hypoxic respiratory failure multifactorial PCR is + for Influenza Type B and Bordetella pertussis has a macrolide allergy Will treat w Tamiflu (5days) + Bactrim x 14 days dc Levaquin #Influenza B and Pertussis placed on airborne precautions will ask ID if staff/family exposed to pertussis need prophylactic treatment #asthma exacerbation started on solumedrol on 4 liters of O2 # chest tightness trop is negative echo ordered suspect secondary from the above patient has underlying LBBB #morbid obesity w BMI of 42 # chronic back pain Due to cervical and lumbar radiculopathy # dispo: pending # Plan : Dr Schneider to see and evaluate Subjective: Maren is c/o ongoing shortness of breath. Objective: Vital Signs Temp Pulse Resp BP Pulse Ox 37.1 C 94 20 113/63 90 L 01/02/17 07:43 01/02/17 07:43 01/02/17 07:43 01/02/17 07:43 01/02/17 07:43 Microbiology 01/02/17 06:10 Respiratory Panel (PCR) - Final Nasal, Sinus - [place] Viral Transport Influenza Virus Type B Bordetella Pertussis 01/01/17 01/02/17 01/03/17 05:59 05:59 05:59 Intake Total 1000 Balance 1000 PT 12.5 SEC (12.0-15.0) 01/02/17 04:40 INR 0.94 (0.83-1.16) 01/02/17 04:40 - Physical Exam Constitutional: obese, uncomfortable Eyes: PERRL Ears, Nose, Mouth, Throat: hearing normal Cardiovascular: regular rate and rhythym Respiratory: no respiratory distress, reduced air movement, other (poor respiratory inspiration) Skin: warm, normal color Musculoskeletal: no muscle tenderness Neurologic: AAOx3 ICD10 Worksheet Patient Problems: Problems Problem Status Onset Asthma Acute Shortness of breath Acute Cervical radiculitis Active Low back pain Active Abdominal pain Acute Abdominal pain in female Acute Acute bronchitis Acute Acute hypoxemic respiratory failure Acute Hypoxemia requiring supplemental oxygen Acute Pneumonia Acute Reactive airway disease with acute exacerbation Acute Severe sepsis Acute Shortness of breath Acute UTI (urinary tract infection) Acute Vesico-vaginal fistula Acute
[2017-01-02] MEDS ORDERED: ALBUTEROL 60 PUFFS/8 GM MDI IH PRN (09:27)
[2017-01-02] MEDS ORDERED: IBUPROFEN 200 MG TAB PO PRN (09:27)
[2017-01-02] MEDS ORDERED: ALBUTEROL 200 PUFFS/18 GM MDI IH PRN (09:36)
[2017-01-02] MEDS: OSELTAMIVIR PHOSPHATE 75 MG CAP PO SCH ×2 (09:54→17:46)
[2017-01-02] MEDS: PARoxetine HCL 20 MG TAB PO SCH (09:54)
[2017-01-02] MEDS: SULFAMETHOX/TMP 800/160 MG 1 TAB PO SCH ×2 (09:54→20:15)
[2017-01-02] MEDS: guaiFENesin/CODEINE PHOS 10 ML UDCUP PO PRN ×2 (10:03→23:26)
[2017-01-02 11:10] LABS: CREATINE KINASE-MB FRACTION 1.16 ng/mL (0-3.19); TROPONIN I < 0.012 ng/mL (0-0.034)
--- NOTE | 2017-01-02 11:44 | ECHO ---
[id number] + + [id number] : : [place] [address] : : [phone] + + Adult Echocardiographic Report + ------+ :Name: NILAM LEIGH LStudy Date: 01/02/2017 10:54 AM BP: 113/63 mmHg : : Hospital Admission Number: [id number] Audra n: [id number]: :: 1960 Gender: Female Height: 67 in : :Age: 56 yrs Race: UN,HL,OTH Weight: 240 lb : :Reason For Study: chest pain, SOB : : BSA: 2.2 meters 2 : :History: chest pain : + ------+ MMode/2D Measurements \T\ Calculations IVSd: 0.97 cm RVDd: 3.5 cm FS: 30.6 % Ao root diam: 2.9 cm LVPWd: 1.1 cm LVIDd: 5.1 cm EDV(Teich): 126.5 ml LA dimension: 3.8 cm LVIDs: 3.6 cm ESV(Teich): 53.3 ml EF(Teich): 57.8 % Normal Measurement Values: + + :LVIDd (3.5-5.7cm) IVSd (0.6-1.1cm) LVPWd (0.6-1.1cm) Aortic Root (2.0-3.7cm)Left Atrium (1.5-4.0cm): :LV Vol(d) (76-115ml) LV Vol(s) (29-48ml) Ejec Fraction (50-65%)PV Serg (0.6- 1.2m/s) TV Serg (0.4-1.0m/s) : :MV E Serg (0.8-1.0m/s)MV A Serg (0.3-1.0m/s)LVOT Serg (0.7-1.2m/s) Asc Ao Serg ( 0.9-1.8m/s) : + + Doppler Measurements \T\ Calculations MV E max serg: Ao V2 max: LV V1 max: PA V2 max: 95.4 cm/sec 188.5 cm/sec 125.6 cm/sec 109.9 cm/sec MV A max serg: Ao max PG: LV V1 max PG: PA max P.1 cm/sec 14.2 mmHg 6.3 mmHg 4.8 mmHg MV E/A: 0.79 MV dec time: 0.13 sec Left Ventricle The left ventricle is normal in size and function. There is normal left ventricular wall thickness. Ejection Fraction = 55-60%. Regional wall motion abnormalities cannot be excluded due to limited visualization. Right Ventricle The right ventricle is normal in size and function. Atria The left atrial size is normal. Right atrial size is normal. Mitral Valve The mitral valve is normal in structure and function. There is no mitral valve stenosis. There is trace mitral regurgitation. Tricuspid Valve The tricuspid valve is normal in structure and function. There is no tricuspid stenosis. No tricuspid regurgitation. Aortic Valve The aortic valve is trileaflet. There is mild aortic valve calcification. There is no aortic stenosis. There is no aortic insufficiency. Pulmonic Valve The pulmonic valve is not well visualized. Great Vessels The aortic root is normal size. Pericardium/Pleural There is no pericardial effusion. Conclusion A two-dimensional transthoracic echocardiogram with M-mode and Doppler was performed. The study was technically difficult. The left ventricle is normal in size and function. Ejection Fraction = 55-60%. There is trace mitral regurgitation. No tricuspid regurgitation. The tricuspid valve is normal in structure and function. Final Reading Physician: Gwen Aranda signed on 01/02/2017 11:43 AM Ordering Physician: Slime Zavala Performed By: Isa Pedersen
[2017-01-02] MEDS ORDERED: PROTOCOL POTASSIUM 1 DOSE MISC PRN (16:48)
[2017-01-02] MEDS ORDERED: PROTOCOL MAGNESIUM 1 DOSE IV PRN (16:48)
--- NOTE | 2017-01-02 16:51 | CPEKG ---
Heart Rate: 66 RR Interval: 909 P-R Interval: 148 QRSD Interval: 148 QT Interval: 472 QTC Interval: 495 P [place]: 50 QRS [place]: -30 T Wave [place]: 104 EKG Severity - ABNORMAL ECG - EKG Impression: SINUS RHYTHM EKG Impression: LEFT BUNDLE BRANCH BLOCK Electronically Signed By: Janeth Rondon 03-Jan-2017 19:29:52
[2017-01-02 17:24] LABS: POTASSIUM 4.7 mEq/L (3.5-5.2)
--- NOTE | 2017-01-02 17:56 | GCON ---
[f rep st] CONSULTATION REFERRING PHYSICIAN: Erica Chiu NP REASON FOR REFERRAL: Influenza and possible Bordetella pertussis. HISTORY OF PRESENT ILLNESS: Patient is a 56-year-old female with known obesity as well as reactive airway disease/asthma, who presented to the emergency department on 01/02/2017 complaining of 5 days of shortness of breath and asthma exacerbation. She states that she has needed to be on her home n ebulizer every 2 hours for shortness of breath. The patient had been seen prior in the emergency ro om (the day before admission) and was discharged home (after multiple breathing treatments) on predn isone. Patient also complained of a nonproductive dry cough. She was admitted and started empirica lly on Levaquin. A respiratory viral panel was sent, which returned positive results for both influ lucita B as well as Bordetella pertussis. Patient was started on Bactrim and oseltamivir. Bactrim wa s chosen owing to macrolide allergy. Patient relates that her son had traveled with her to [place] and returned home approximately 4-5 days before she started feeling ill. He had a cough and upper respiratory infection at that time, and it has taken him a long time to get over this ill ness. She relates that her youngest child, age 9, is starting to have a fever, as well, at home. PAST MEDICAL HISTORY: 1. Asthma, mild intermittent. 2. Chronic back pain. 3. Obesity. 4. Nephrolithiasis. PAST SURGICAL HISTORY: 1. Status post multiple orthopedic surgeries. 2. Status post bilateral carpal tunnel repair. 3. Status post ventral hernia repair. 4. Status post breast reduction. ANTIBIOTICS: 1. Bactrim. 2. Oseltamivir. ALLERGIES: Patient is allergic to macrolides, estrogens, Lovenox, Dilaudid, and latex. SOCIAL HISTORY: The patient has never smoked. No alcohol or drug use noted. She lives with her [facility] and is independent. FAMILY HISTORY: Reviewed but noncontributory. REVIEW OF SYSTEMS: Other than that detailed above in history of present illness, a comprehensive 10 -system review is negative. PHYSICAL EXAMINATION: VITAL SIGNS: Temperature maximum is 37.2 and temperature current is 37.2. H eart rate is 86, respiratory rate is 18, blood pressure is 121/72. O2 sat is 92% on 4 L. GENERAL: Patient is a well-formed obese middle-aged female, in no acute distress. She is not toxic in [facility]. She is alert and oriented x3. She has a pleasant demeanor. HEENT: Normocephalic for age. Atraumatic. No scleral icterus. No oral lesion or drainage from the nares. Eyes, lids, and conju nctivae are within normal limits. Pupils are equal and round bilaterally. NECK: Supple. No menin gismus. LUNGS: Clear to auscultation on inspiration. Positive for bilateral expiratory wheeze. N o crackles heard. HEART: Regular rate and rhythm. No murmur, rub, or gallop noted. SKIN: Warm a nd dry to the touch. No rash or lesion noted. MUSCULOSKELETAL: No muscle belly tenderness is note d. No joint line effusion or arthritis is seen. NEURO: Cranial nerves 2-12 seem to be intact. Pe ripheral sensation seems intact in extremities. LABORATORY DATA: Patient has a CBC dated 01/02/2017 that shows a white blood cell count of 8.3, hem oglobin of 17.4, hematocrit of 51.4, and a platelet count of 177; differential is within normal limi ts. Serum chemistries on 01/02/2017 are all within normal limits. Creatinine 0.6. AST is elevated at 62. ALT is elevated at 82. Respiratory viral panel obtained was positive for both influenza B and Bordetella pertussis. ASSESSMENT: Upper respiratory infection: Per the description of her exposures to her son with an u pper respiratory infection 4-5 days prior to getting sick, this is a bit early for this being an inc ubation period for Bordetella pertussis. It is, however, very typical for influenza incubation. Th e other fact is that PCR panels showing influenza are more likely to not be a cross-reactivity to ot her non-pathogenic viruses; whereas Bordetella pertussis has similar Bordetella species which can cr oss react in PCR assays. It is unlikely for the patient to have 2 pathogens causing this presentati on at the same time. Therefore, it is my opinion that the patient has influenza B and not pertussin . We will send out the respiratory sample for pertussis culturing at [facility] to confirm this yoshi ry. In the meantime, we will continue the patient on oseltamivir as well as Bactrim and will follow her clinical course. PLAN: 1. Continue both oseltamivir and Bactrim. My suspicion is that influenza B is the active pathogen here, and that the Bordetella pertussis finding was cross-reactivity. 2. Follow her improvement. /[id number]/MODL
[2017-01-02] MEDS ORDERED: LEVALBUTEROL 1.25 MG/3 ML DEYVIAL IH PRN (23:45)
[2017-01-03 08:14] LABS: MAGNESIUM 2.1 mg/dL (1.6-2.3); POTASSIUM 4.5 mEq/L (3.5-5.2)
[2017-01-03] MEDS: IPRATROPIUM/ALBUTEROL 3 ML DEYVIAL IH SCH ×4 (08:57→20:48)
[2017-01-03] MEDS ORDERED: Herbals/Supplements -Info Only PO SCH (09:00)
[2017-01-03] MEDS: PARoxetine HCL 20 MG TAB PO SCH (09:14)
[2017-01-03] MEDS: predniSONE 20 MG TAB PO SCH (09:14)
[2017-01-03] MEDS: MULTIVITAMINS 1 EACH TAB PO SCH (09:14)
[2017-01-03] MEDS: SULFAMETHOX/TMP 800/160 MG 1 TAB PO SCH ×2 (09:14→20:05)
[2017-01-03] MEDS: VITAMIN B COMPLEX 1 EA CAP/TAB PO SCH (09:14)
[2017-01-03] MEDS: OSELTAMIVIR PHOSPHATE 75 MG CAP PO SCH ×2 (09:14→18:11)
[2017-01-03] MEDS: CHOLECALCIFEROL VIT D3 1,000 UNITS TAB PO SCH (09:14)
--- NOTE | 2017-01-03 09:27 | HOSPPROG ---
Hospitalist Progress Note Assessment/Plan: Patient is a 56 year old female with asthma, obesity who presents to the ED with complaint of wheezing and shortness of breath. On arrival, presentation appears consistent with an acute asthma exacerbation, possibly triggered by acute bronchitis vs viral URI. # acute hypoxic respiratory failure multifactorial PCR is + for Influenza Type B and Bordetella pertussis (which may be a cross- reaction) has a macrolide allergy Will treat w Tamiflu (5days) + Bactrim x 14 days dc Levaquin #Influenza B and possible Pertussis placed on airborne precautions #asthma exacerbation prednisone on 3 liters of O2 # chest tightness trop is negative echo ordered suspect secondary from the above patient has underlying LBBB #morbid obesity w BMI of 42 # chronic back pain Due to cervical and lumbar radiculopathy # Plan : Patient will require another midnight stay for treatment/ still on O2. Reviewed her care w Dr Schneider. Subjective: Maren is starting to feel better today. Objective: Vital Signs Temp Pulse Resp BP Pulse Ox 37.1 C 78 18 127/72 H 90 L 01/03/17 08:00 01/03/17 08:00 01/03/17 08:00 01/03/17 08:00 01/03/17 08:00 Microbiology 01/02/17 06:10 Respiratory Panel (PCR) - Final Nasal, Sinus - [place] Viral Transport Influenza Virus Type B Bordetella Pertussis Laboratory Results 01/03/17 04:23 01/02/17 01/03/17 01/04/17 05:59 05:59 05:59 Intake Total 1000 Output Total 1500 Balance -500 PT 12.5 SEC (12.0-15.0) 01/02/17 04:40 INR 0.94 (0.83-1.16) 01/02/17 04:40 - Physical Exam Constitutional: not in pain, obese, uncomfortable Eyes: PERRL Ears, Nose, Mouth, Throat: hearing normal Cardiovascular: regular rate and rhythym Respiratory: no respiratory distress, expiratory wheeze Gastrointestinal: normoactive bowel sounds Skin: warm Musculoskeletal: full muscle strength Neurologic: AAOx3 Psychiatric: interacting appropriately ICD10 Worksheet Patient Problems: Problems Problem Status Onset Asthma Acute Shortness of breath Acute Cervical radiculitis Active Low back pain Active Abdominal pain Acute Abdominal pain in female Acute Acute bronchitis Acute Acute hypoxemic respiratory failure Acute Hypoxemia requiring supplemental oxygen Acute Pneumonia Acute Reactive airway disease with acute exacerbation Acute Severe sepsis Acute Shortness of breath Acute UTI (urinary tract infection) Acute Vesico-vaginal fistula Acute
[2017-01-03] MEDS: guaiFENesin/CODEINE PHOS 10 ML UDCUP PO PRN (09:28)
--- NOTE | 2017-01-03 11:29 | PCMIDPN ---
Assessment/Plan: Assessment: Influenza B infection in patient with asthma. Her asthma appears to be stable over the past 24 hours. She continues on Tamiflu. She also continues on Bactrim as coverage for Bordetella pertussis but as outlined in consult I suspect this is influenza B only. Confirmatory or refuting culture in process with [facility] labs. Plan: 1. Continue Tamiflu. 2. Continue supportive care for asthma exacerbation. 3. Continue oral Bactrim until [facility] lab culture returns. 01/03/17 16:00 Subjective: Patient is resting comfortably. She is able to sleep now comfortably overnight last night where she was not for the past few days. She is still wheezy and still coughing up purulent sputum. Objective: Tamiflu #2 Bactrim #2 Vital Signs Temp Pulse Resp BP Pulse Ox 37.1 C 63 18 128/47 H 92 01/03/17 11:15 01/03/17 11:15 01/03/17 11:15 01/03/17 11:15 01/03/17 11:15 Microbiology 01/02/17 21:50 Respiratory Panel (PCR) - Final Nasal, Sinus - [place] Viral Transport 01/02/17 06:10 Respiratory Panel (PCR) - Final Nasal, Sinus - [place] Viral Transport Influenza Virus Type B Bordetella Pertussis Laboratory Results 01/03/17 04:23 01/02/17 01/03/17 01/04/17 05:59 05:59 05:59 Intake Total 1000 360 Output Total 1500 300 Balance -500 60 - Physical Exam General Appearance: WD/WN, alert, no apparent distress, obese, toxic (Mildly) Respiratory: wheezing, No lungs clear, No normal breath sounds, No accessory muscle use, No crackles Cardiac/Chest: regular rate, rhythm, No tachycardia Skin: normal color, warm/dry, No rash Neuro/Psych: alert, normal mood/affect, oriented x 3 ICD10 Worksheet Patient Problems: Problems Problem Status Onset Asthma Acute Shortness of breath Acute Cervical radiculitis Active Low back pain Active Abdominal pain Acute Abdominal pain in female Acute Acute bronchitis Acute Acute hypoxemic respiratory failure Acute Hypoxemia requiring supplemental oxygen Acute Pneumonia Acute Reactive airway disease with acute exacerbation Acute Severe sepsis Acute Shortness of breath Acute UTI (urinary tract infection) Acute Vesico-vaginal fistula Acute
[2017-01-03 18:57] LABS: POTASSIUM 4.8 mEq/L (3.5-5.2)
[2017-01-04] MEDS: LORazepam 0.5 MG TAB PO PRN ×2 (01:20→23:57)
[2017-01-04] MEDS: guaiFENesin/CODEINE PHOS 10 ML UDCUP PO PRN ×2 (01:20→23:57)
[2017-01-04 04:59] LABS: MAGNESIUM 2.1 mg/dL (1.6-2.3); POTASSIUM 4.1 mEq/L (3.5-5.2)
[2017-01-04] MEDS: IPRATROPIUM/ALBUTEROL 3 ML DEYVIAL IH SCH ×4 (06:00→21:11)
[2017-01-04] MEDS: CHOLECALCIFEROL VIT D3 1,000 UNITS TAB PO SCH (07:58)
[2017-01-04] MEDS: MULTIVITAMINS 1 EACH TAB PO SCH (07:58)
[2017-01-04] MEDS: predniSONE 20 MG TAB PO SCH (07:59)
[2017-01-04] MEDS: VITAMIN B COMPLEX 1 EA CAP/TAB PO SCH (07:59)
[2017-01-04] MEDS: PARoxetine HCL 20 MG TAB PO SCH (07:59)
[2017-01-04] MEDS: SULFAMETHOX/TMP 800/160 MG 1 TAB PO SCH ×2 (07:59→20:34)
[2017-01-04] MEDS: OSELTAMIVIR PHOSPHATE 75 MG CAP PO SCH ×2 (07:59→17:08)
--- NOTE | 2017-01-04 14:19 | HOSPPROG ---
Hospitalist Progress Note Assessment/Plan: Patient is a 56 year old female with asthma, obesity who presents to the ED with complaint of wheezing and shortness of breath. On arrival, presentation appears consistent with an acute asthma exacerbation, possibly triggered by acute bronchitis vs viral URI. This is my first encounter, chart reviewed. D/W RN. # acute hypoxic respiratory failure multifactorial PCR is + for Influenza Type B and Bordetella pertussis (which may be a cross- reaction) has a macrolide allergy Will treat w Tamiflu (5days) + Bactrim x 14 days dc Levaquin appreciate ID, await culture final from [facility] #Influenza B and possible Pertussis placed on airborne precautions #asthma exacerbation prednisone on 3 liters of O2 still having some tightness # chest tightness trop is negative echo EF 55-60% suspect secondary from the above patient has underlying LBBB #morbid obesity w BMI of 42 # chronic back pain Due to cervical and lumbar radiculopathy # Plan : Still feeling tired. Would like to go home in am if possible. Will await ID recs. Subjective: Slept well. Still very tired and weak. Breathing a bit easier today. Objective: Vital Signs Temp Pulse Resp BP Pulse Ox 37.1 C 68 16 127/68 H 90 L 01/04/17 12:00 01/04/17 12:00 01/04/17 12:00 01/04/17 12:00 01/04/17 12:00 Laboratory Results 01/04/17 04:18 01/03/17 01/04/17 01/05/17 05:59 05:59 05:59 Intake Total 1240 Output Total 2575 Balance -1335 PT 12.5 SEC (12.0-15.0) 01/02/17 04:40 INR 0.94 (0.83-1.16) 01/02/17 04:40 - Physical Exam Constitutional: appears nourished, not in pain, obese Eyes: PERRL, anicteric sclera, EOMI Ears, Nose, Mouth, Throat: moist mucous membranes, hearing normal, ears appear normal Cardiovascular: No JVD, No tachycardia, No edema Respiratory: no respiratory distress, reduced air movement, expiratory wheeze Gastrointestinal: No tenderness, No ascites, No guarding Skin: warm, normal color, No erythema Musculoskeletal: no muscle tenderness, no joint effusions, generalized weakness Neurologic: AAOx3 Psychiatric: interacting appropriately, not anxious, not encephalopathic, thought process linear ICD10 Worksheet Patient Problems: Problems Problem Status Onset Low back pain Active Cervical radiculitis Active Abdominal pain in female Acute UTI (urinary tract infection) Acute Pneumonia Acute Hypoxemia requiring supplemental oxygen Acute Vesico-vaginal fistula Acute Reactive airway disease with acute exacerbation Acute Acute hypoxemic respiratory failure Acute Severe sepsis Acute Abdominal pain Acute Shortness of breath Acute Acute bronchitis Acute Asthma Acute Shortness of breath Acute
[2017-01-04 19:03] LABS: POTASSIUM 4.8 mEq/L (3.5-5.2)
--- NOTE | 2017-01-04 19:20 | PCMIDPN ---
Assessment/Plan: Assessment/Plan: * Influenza B: Continued clinical improvement with Tamiflu and treatment of underlying asthma. Plan 5 day course of Tamiflu (day 3/5). * Positive PCR for Bordetella pertussis: Unclear if this represents true positive versus false positive as unusual to have 2 discrete respiratory pathogen simultaneously and testing done at [facility] for pertussis by PCR is negative. Did have cough with post-tussive emesis which can be seen with pertussis however. Her daughter also has pertussis studies pending which if positive would provide significant evidence that this represents true positive. She has given permission to access her daughters laboratory data. Continue Bactrim in interim (macrolide allergy of hives) while this information is pending. 01/04/17 19:17 01/04/17 19:18 Subjective: Patient feels better but complained of vertigo symptoms earlier today. Overall breathing has improved. Objective: Vital Signs Temp Pulse Resp BP Pulse Ox 36.6 C 78 14 136/79 H 95 01/04/17 19:16 01/04/17 19:16 01/04/17 19:16 01/04/17 19:16 01/04/17 19:16 Laboratory Results 01/04/17 18:30 01/03/17 01/04/17 01/05/17 05:59 05:59 05:59 Intake Total 1240 Output Total 2575 Balance -1335 Tamiflu # 3 Bactrim # 3 Bordetella pertussis by PCR at [facility] negative - Physical Exam General Appearance: alert, no apparent distress EENT: pharynx normal, No thrush Respiratory: wheezing (Occasional expiratory bilaterally) Cardiac/Chest: regular rate, rhythm Abdomen: non-tender, No distended ICD10 Worksheet Patient Problems: Problems Problem Status Onset Asthma Acute Shortness of breath Acute Cervical radiculitis Active Low back pain Active Abdominal pain Acute Abdominal pain in female Acute Acute bronchitis Acute Acute hypoxemic respiratory failure Acute Hypoxemia requiring supplemental oxygen Acute Pneumonia Acute Reactive airway disease with acute exacerbation Acute Severe sepsis Acute Shortness of breath Acute UTI (urinary tract infection) Acute Vesico-vaginal fistula Acute
[2017-01-05 04:53] LABS: MAGNESIUM 2.2 mg/dL (1.6-2.3); POTASSIUM 3.7 mEq/L (3.5-5.2)
[2017-01-05] MEDS: IPRATROPIUM/ALBUTEROL 3 ML DEYVIAL IH SCH ×5 (06:13→20:51)
[2017-01-05] MEDS: CHOLECALCIFEROL VIT D3 1,000 UNITS TAB PO SCH (08:44)
[2017-01-05] MEDS: MULTIVITAMINS 1 EACH TAB PO SCH (08:44)
[2017-01-05] MEDS: PARoxetine HCL 20 MG TAB PO SCH (08:44)
[2017-01-05] MEDS: VITAMIN B COMPLEX 1 EA CAP/TAB PO SCH (08:44)
[2017-01-05] MEDS: OSELTAMIVIR PHOSPHATE 75 MG CAP PO SCH ×2 (08:44→17:19)
[2017-01-05] MEDS: SULFAMETHOX/TMP 800/160 MG 1 TAB PO SCH ×2 (08:44→22:05)
[2017-01-05] MEDS: predniSONE 20 MG TAB PO SCH (08:44)
--- NOTE | 2017-01-05 11:52 | HOSPPROG ---
Hospitalist Progress Note Assessment/Plan: Patient is a 56 year old female with asthma, obesity who presents to the ED with complaint of wheezing and shortness of breath. D/W Dr Rhoades. # acute hypoxic respiratory failure multifactorial PCR is + for Influenza Type B and Bordetella pertussis (which may be a cross- reaction) has a macrolide allergy Will treat w Tamiflu (5days) + Bactrim x 14 days appreciate ID, await culture final from [place] #Influenza B and possible Pertussis placed on airborne precautions #asthma exacerbation prednisone on 3 liters of O2 still having some tightness using nebs # chest tightness trop is negative echo EF 55-60% suspect secondary from the above patient has underlying LBBB #morbid obesity w BMI of 42 # chronic back pain Due to cervical and lumbar radiculopathy # Plan : Still feeling tired. Would like to go home in am if possible. Likely treat with bactrim for a total of 14 days Subjective: Still having significant cough. Feels tired and weak. Objective: Vital Signs Temp Pulse Resp BP Pulse Ox 37 C 63 18 141/80 H 91 L 01/05/17 11:43 01/05/17 11:43 01/05/17 11:43 01/05/17 11:43 01/05/17 11:43 Laboratory Results 01/05/17 04:21 01/04/17 01/05/17 01/06/17 05:59 05:59 05:59 Intake Total 1240 1100 360 Output Total 2575 1400 Balance -1335 -300 360 PT 12.5 SEC (12.0-15.0) 01/02/17 04:40 INR 0.94 (0.83-1.16) 01/02/17 04:40 - Physical Exam Constitutional: appears nourished, not in pain, obese Eyes: PERRL, anicteric sclera, EOMI Ears, Nose, Mouth, Throat: moist mucous membranes, hearing normal, ears appear normal Cardiovascular: No JVD, No tachycardia, No edema Gastrointestinal: normoactive bowel sounds, No tenderness, No ascites Skin: warm, normal color, No mottled Musculoskeletal: normal joint ROM, no joint effusions, generalized weakness Neurologic: AAOx3 Psychiatric: interacting appropriately, not anxious, not encephalopathic ICD10 Worksheet Patient Problems: Problems Problem Status Onset Low back pain Active Cervical radiculitis Active Abdominal pain in female Acute UTI (urinary tract infection) Acute Pneumonia Acute Hypoxemia requiring supplemental oxygen Acute Vesico-vaginal fistula Acute Reactive airway disease with acute exacerbation Acute Acute hypoxemic respiratory failure Acute Severe sepsis Acute Abdominal pain Acute Shortness of breath Acute Acute bronchitis Acute Asthma Acute Shortness of breath Acute
--- NOTE | 2017-01-05 14:07 | PCMIDPN ---
Assessment/Plan: Assessment/Plan: 1. INfluenza B: - on droplet precautions. - Currently on Tamiflu D#4/5 -Continue for now. 2. Pertussis PCR positive: -unclear if true infection vs false positive. -On bactrim for this for now. -D#4 of therapy -Daughters pertussis work up pending still -Continue with current care for now. Meds tamilu bactrim ds bid Subjective: Afebrile. FEels very tired today. not sleeping well due to coughing. productive cough. denies abd pain or diarrhea. Objective: Vital Signs Temp Pulse Resp BP Pulse Ox 37 C 63 18 141/80 H 91 L 01/05/17 11:43 01/05/17 11:43 01/05/17 11:43 01/05/17 11:43 01/05/17 11:43 Laboratory Results 01/05/17 04:21 01/04/17 01/05/17 01/06/17 05:59 05:59 05:59 Intake Total 1240 1100 360 Output Total 2575 1400 Balance -1335 -300 360 - Physical Exam General Appearance: alert, no apparent distress Respiratory: coarse breath sounds Cardiac/Chest: regular rate, rhythm Extremities: No swelling Skin: No erythema ICD10 Worksheet Patient Problems: Problems Problem Status Onset Asthma Acute Shortness of breath Acute Cervical radiculitis Active Low back pain Active Abdominal pain Acute Abdominal pain in female Acute Acute bronchitis Acute Acute hypoxemic respiratory failure Acute Hypoxemia requiring supplemental oxygen Acute Pneumonia Acute Reactive airway disease with acute exacerbation Acute Severe sepsis Acute Shortness of breath Acute UTI (urinary tract infection) Acute Vesico-vaginal fistula Acute
[2017-01-06] MEDS: LORazepam 0.5 MG TAB PO PRN (00:58)
[2017-01-06] MEDS: guaiFENesin/CODEINE PHOS 10 ML UDCUP PO PRN (02:05)
[2017-01-06] MEDS: IPRATROPIUM/ALBUTEROL 3 ML DEYVIAL IH SCH ×2 (05:46→10:38)
[2017-01-06 08:23] VITALS: BP 122/71; PULSE 73; RESP 18; TEMP 98; O2SAT 93
[2017-01-06] MEDS: OSELTAMIVIR PHOSPHATE 75 MG CAP PO SCH (08:46)
[2017-01-06] MEDS: MULTIVITAMINS 1 EACH TAB PO SCH (10:27)
[2017-01-06] MEDS: CHOLECALCIFEROL VIT D3 1,000 UNITS TAB PO SCH (10:27)
[2017-01-06] MEDS: PARoxetine HCL 20 MG TAB PO SCH (10:27)
[2017-01-06] MEDS: predniSONE 20 MG TAB PO SCH (10:27)
[2017-01-06] MEDS: SULFAMETHOX/TMP 800/160 MG 1 TAB PO SCH (10:28)
[2017-01-06] MEDS: VITAMIN B COMPLEX 1 EA CAP/TAB PO SCH (10:28)
--- NOTE | 2017-01-06 17:29 | GDS ---
[f rep st] DISCHARGE SUMMARY DISCHARGE DIAGNOSES: 1. Possible pertussis. 2. Influenza B. 3. Acute hypoxemic respiratory failure. 4. Asthma exacerbation. 5. Morbid obesity. 6. Chronic pain. CONSULTATIONS: Infectious Disease. PHYSICAL EXAM: GENERAL: The patient was alert. VITAL SIGNS: Afebrile at 36.7, pulse was 73, respira tory rate was 18, blood pressure was 122/71. She was saturating 93% on 4 L, less than 87% on room ai r. I saw and evaluated the patient on the day of discharge. HOSPITAL COURSE: The patient is a 56-year-old female who presented to the emergency room with compl aints of shortness of breath. She was evaluated and diagnosed with: 1. Acute hypoxemic respiratory failure. During this hospitalization, she was evaluated for etiology of her hypoxemia. It was noted the patient has suffered from influenza B, as well as having a posit kimani pertussis PCR. She was treated with Bactrim during this hospitalization secondary to her macroli de allergy. She had also been treated with Tamiflu, and was provided a prescription at the time of d isposition, to continue Bactrim for a total of 14 days and Tamiflu for a total of 5 days. Her final culture from [facility] was still pending at the time of disposition. 2. Influenza B. Again, she was treated with Tamiflu. 3. Possible pertussis. The patient will follow up with Infectious Disease in the outpatient setting for final culture results, however, she will be treated with Bactrim in the interim. 4. Asthma exacerbation. She was responding to prednisone therapy and was provided a prescription fo r prednisone taper in the outpatient setting. She will follow up at [facility] for further resp iratory needs. DISPOSITION: The patient will be discharged home independently with supplemental oxygen. She did me et criteria for supplemental oxygen, as her room oxygen saturation was less than 87%. I saw and eval uated the patient on the day of discharge. DISCHARGE MEDICATIONS: Prescription for Bactrim DS 1 p.o. b.i.d., as well as Tamiflu have been prov ided at the time of disposition. I spent greater than 35 minutes in the care, coordination, and management of this patient's discharg e. /[id number]/MODL
== END 2017-01-06 14:25 | disposition home or self-care (01) | DRG 193 ==
LOC: EDUNIT# → INTOOBSV 05:27 → F3E 07:08 → OBSVTOIN 01-03 11:45
PROVIDERS: ADMIT Internal Medicine; ATTEND Internal Medicine
DX: J10.1 Influenza due to other identified influenza virus with other respiratory manifestations (principal); A37.00 Whooping cough due to Bordetella pertussis without pneumonia; J45.901 Unspecified asthma with (acute) exacerbation; J96.01 Acute respiratory failure with hypoxia; I44.7 Left bundle-branch block, unspecified; E66.01 Morbid (severe) obesity due to excess calories; G89.29 Other chronic pain
CPT/HCPCS: 96374; G0378; J2060; J2405